=== PATIENT | female | born 1985 | race Caucasian/White ===

== ENCOUNTER 2018-01-07 14:35 | Emergency (ER) | payer BC, MEDICAID ==
[2018-01-07] MEDS ORDERED: Ondansetron 4 MG Tab.DIS PO ONE (15:46)
[2018-01-07] MEDS ORDERED: Sodium Chloride 0.9% 1,000 ML IV ONE (15:46)
--- NOTE | 2018-01-08 05:19 | ER ---
DATE SEEN: 01/07/2018 TIME SEEN: The patient was seen at 1533 hours. HISTORY OF PRESENT ILLNESS: This 32-year-old 4, para 3-0-0-3 woman had onset of contractions, discomfort in the abdomen. No history of urinary tract infection, frequency, urgency, or dysuria. No unusual food that she had eaten. She vomited once yesterday. She is indeterminate when her last menstrual period was and not sure how long her is. She is to see Dr. Love on the 15 of January. The patient denies back pain or other symptoms, shortness of breath or cough or leg pain. She has not had any vaginal bleeding. PHYSICAL EXAMINATION: GENERAL: Mildly overweight pleasant woman, who is . ABDOMEN: Uterus not palpable trans-suprapubically. Increased abdominal girth. EXTREMITIES: Lower extremities without edema. DIAGNOSTIC DATA: Quick look ultrasound demonstrates suggestive yolk sac. The serum HCG demonstrates a 56,137 quantitative HCG level joel-international units per mL, which puts her in a range of 5-6 weeks with a quantitative HCG OF10,000 to 100,000, consistent with the identification of yolk sac (usually not seen until 5 weeks gestation). ASSESSMENT: 1. . 2. No evidence for urinary tract infection. Urinalysis is normal. Rare bacteria. PLAN: The patient reassured, dismissed. To keep her appointment with Dr. Love. She has the potential for hyperemesis gravidarum, not evident presently. There are no ketones in the urine. The patient advised to drink fluids frequently and eat small meals to diminish the problems of nausea with the first part of . /[id number] FAVIAN/MAREK ORTIZ
== END 2018-01-07 17:45 | disposition home or self-care (01) ==
LOC: FB.ED 14:35
DX: O99.89 Other specified diseases and conditions complicating pregnancy, childbirth and the puerperium (principal); R10.9 Unspecified abdominal pain
CPT/HCPCS: 36415; 81001; 84702; 96360; 99284; A9270-GY; J7040

== ENCOUNTER 2021-06-21 19:36 | Emergency (ER) | payer MEDICAID ==
[2021-06-21] MEDS ORDERED: Cephalexin 500 MG Cap PO STA (19:53)
--- NOTE | 2021-06-21 20:00 | EDM.PDOC ---
ED HPI GENERAL MEDICAL PROBLEM - General Chief Complaint: Skin Complaint Stated Complaint: CYST UNDER ARMPIT Time Seen by Provider: 06/21/21 19:45 Source of Information: Reports: Patient History Limitations: Reports: No Limitations - History of Present Illness INITIAL COMMENTS - FREE TEXT/NARRATIVE: Patient presented to the ED because of a tender lump on her left anxilla which started 3 days ago and is getting worse. She has a history of Hidradenitis Suppurativa which was surgically drained in the past. Left Axillary Pain Score (Numeric/FACES): 9 - Related Data Allergies Allergy/AdvReac Type Severity Reaction Status Date / Time No Known Allergies Allergy Verified 01/07/18 16:05 Home Meds: Home Meds Vits #93/Iron Fum/FA [ Formula Tablet] 1 tab PO DAILY 06/21/18 [History] cephALEXin [Keflex] 500 mg PO Q6H #40 cap 06/21/21 [Rx] Past Medical History MEDIA ANALYST History: Reports: Endometriosis, Endocrine/Metabolic History: Reports: Diabetes, Type II - Past Surgical History GI Surgical History: Reports: Cholecystectomy Social & Family History - Family History Family Medical History: Unobtainable - Tobacco Use Tobacco Use Status *Q: Never Tobacco User - Caffeine Use Caffeine Use: Reports: Coffee, Soda - Recreational Drug Use Recreational Drug Use: No ED ROS GENERAL - Review of Systems Review Of Systems: See Below Constitutional: Reports: No Symptoms HEENT: Reports: No Symptoms Respiratory: Reports: No Symptoms Cardiovascular: Reports: No Symptoms Endocrine: Reports: No Symptoms GI/Abdominal: Reports: No Symptoms : Reports: No Symptoms Musculoskeletal: Reports: No Symptoms Skin: Reports: Erythema Neurological: Reports: No Symptoms Psychiatric: Reports: No Symptoms Hematologic/Lymphatic: Reports: No Symptoms ED EXAM, SKIN/RASH Exam: See Below Exam Limited By: No Limitations General Appearance: Alert, No Apparent Distress Ears: Normal External Exam, Normal Canal Nose: Normal Inspection, Normal Mucosa, No Blood Throat/Mouth: Normal Inspection, Normal Lips, Normal Teeth, Normal Gums Head: Atraumatic, Normocephalic Neck: Normal Inspection, Supple, Non-Tender, Full Range of Motion Respiratory/Chest: No Respiratory Distress, Lungs Clear, Normal Breath Sounds, No Accessory Muscle Use, Chest Non-Tender Cardiovascular: Normal Peripheral Pulses, Regular Rate, Rhythm, No Edema, No Gallop, No JVD, No Murmur GI/Abdominal: Normal Bowel Sounds, Soft, Non-Tender, No Organomegaly, No Distention, No Abnormal Bruit, No Mass Back Exam: Normal Inspection, Full Range of Motion Extremities: Normal Inspection, Normal Range of Motion, Non-Tender, No Pedal Edema, Other (2 cm tender lump left axilla) Neurological: Alert, Oriented, CN II-XII Intact Psychiatric: Normal Affect Course - Vital Signs Text/Narrative:: Keflex 500 mg PO x1 Last Recorded V/S: Last Vital Signs Temp 36.6 C 06/21/21 19:43 Pulse 98 06/21/21 19:43 Resp 18 06/21/21 19:43 BP 157/76 H 06/21/21 19:43 Pulse Ox 97 06/21/21 19:43 - Orders/Labs/Meds Meds: Medications Discontinued Medications Generic Name Dose Route Start Last Admin Trade Name Calebq PRN Reason Stop Dose Admin Cephalexin 500 mg 06/21/21 19:53 06/21/21 20:01 Cephalexin 500 Mg Cap PO 06/21/21 19:54 500 mg NOW STA Administration Departure - Departure Time of Disposition: 20:00 Disposition: Home, Self-Care 01 Condition: Good Clinical Impression: Axillary hidradenitis suppurativa - Discharge Information Prescriptions: cephALEXin [Keflex] 500 mg PO Q6H #40 cap Instructions: Hidradenitis Suppurativa Referrals: Rufus Love MD [Primary Care Provider] - Forms: ED Department Discharge Additional Instructions: Please read discharge instructions on hydradenitis suppurativa Take ibuprofen 800 mg with Tylenol 1000 mg every 8 hours as needed for pain Keflex 500 mg 4 times daily for 10 days Follow up with a surgeon from [place] if the lump doesn't go away in a week Sepsis Event Note (ED) - Evaluation Sepsis Screening Result: No Definite Risk
== END 2021-06-21 20:07 | disposition home or self-care (01) ==
LOC: FB.ED 19:36
DX: L73.2 Hidradenitis suppurativa (principal); E11.9 Type 2 diabetes mellitus without complications
CPT/HCPCS: 99283; A9270